=== PATIENT | female | born 1995 | race Caucasian/White ===

== ENCOUNTER 2023-07-14 13:19 | Outpatient (CLI) | payer OTHER, SELFPAY ==
--- NOTE | ~2023-07-14 | MR_ITS ---
MRI of the right hand CLINICAL HISTORY: Pain TECHNIQUE: Coronal T1-weighted and T2 fat-sat images, axial T2 fat-sat and T1-weighted images, and sa gittal T1-weighted, T2 fat-sat, and STIR images were acquired. FINDINGS: There are scattered mild degenerative changes of the distal and proximal interphalangeal kari ints in the hand. No suspicious bone marrow signal abnormality seen. No fracture or osteomyelitis kendra ntified. No periosteal reaction. Visualized collateral ligaments and the digits appear intact. No sig nificant joint effusion identified. Flexor and extensor tendons are intact. Intrinsic musculature of the hand is unremarkable. No soft ti ssue mass evident. There is an apparent ganglion cyst dorsal to the capitate lunate articulation of t he wrist, measuring approximately 1.1 cm in maximum diameter. IMPRESSION: Ganglion cyst dorsal to the capitate lunate articulation measuring up to 1.1 cm in maximum diameter. Mild scattered degenerative changes involving the distal and proximal interphalangeal joints of the h and. Reviewed, dictated and finalized at location M. IMPRESSION: Ganglion cyst dorsal to the capitate lunate articulation measuring up to 1.1 cm in maximum diameter. Mild scattered degenerative changes involving the distal and proximal interphal angeal joints of the hand.
== END 2023-07-14 13:20 ==
LOC: GOSHIMG 13:22
PROVIDERS: PCP Internal Medicine; Visit Provider Internal Medicine
DX: M79.641 Pain in right hand (principal)
CPT/HCPCS: 73218